=== PATIENT | female | born 2000 | race Caucasian/White ===

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

== ENCOUNTER 2019-08-29 12:24 | Emergency (ER) | payer OTHER ==
[2019-08-29 13:57] VITALS: BP 120/79
--- OUTSIDE RECORDS SUMMARY | 2019-08-29 14:04 | XMS REPORT | Continuity of Care Document ---
:2000 External Reference #:[id number] Author Name Usha Scruggs M.D. Address [address] [place] [address] Care Team Providers Name Role Phone Usha Scruggs M.D. - Pediatrics Care Team Information Water/Wastewater Engineer Problems Description No Active Problems Social History Type Date Description Comments Sex Unknown Tobacco Use Start: Unknown Patient has never smoked Tobacco Use Start: Unknown No Exposure To Secondhand Smoke Smoking Status Reviewed: 06/28/19 No Exposure To Secondhand Smoke Guns in Home No Allergies, Adverse Reactions, Alerts Description No Known Drug Allergies Medications Active Medications SIG Qnty Indications Ordering Provider Date Jessica 1 by mouth every 28tabs Z30.9 Usha Harvey 06/28/2019 0.35mg Tablets day Siobhan Scruggs Imitrex 1 tab for migraine 10tabs Usha Harvey 10/19/2018 25mg Tablets headache or prior Siobhan Scruggs to prolonged car travel Medications Administered in Office Medication SIG Qnty Indications Ordering Provider Date Immunization Administration Usha Scruggs M.D. 10/09/2018 Single Or Combination Injection Immunization Administration Usha Scruggs M.D. 08/02/2016 Single Or Combination Injection Immunization Administration Nursing 05/24/2016 Single Or Combination Injection Immunization Adminstration 2+ Giovana Hernandez NP 08/02/2015 Single Or Combination Injection Immunization Administration Giovana Hernandez NP 08/02/2015 Single Or Combination Injection Immunization Adminstration 2+ Usha Scruggs M.D. 07/25/2014 Single Or Combination Injection Immunization Administration Usha Scruggs M.D. 07/25/2014 Single Or Combination Injection Immunizations CPT Code Status Date Vaccine Reaction Lot # [id number] Given 10/09/2018 Flu Quadrivalent [id number] 30708 Given 08/02/2016 Flu Quadrivalent borrowed from private [id number] per EZ 26153 Given 05/24/2016 Meningococcal Conjugate [id number] Vaccine (Menveo) 80504 Given 08/02/2015 Flu Quadrivalent [id number] 56105 Given 08/02/2015 Hepatitis A Pediatric [id number] 71427 Given 07/25/2014 Flu Quadrivalent [id number] 04131 Given 07/25/2014 Hepatitis A Pediatric [id number] 61510 Given 01/17/2014 Gardasil 55621 Given 09/20/2013 Gardasil 29895 Given 07/19/2013 Gardasil 27301 Given 07/17/2012 Influenza Virus Vaccine, Split Virus, 6-35 Months Age Intramuscul 59574 Given 07/08/2011 Influenza Virus Vaccine, Split Virus, 6-35 Months Age Intramuscul 02696 Given 06/11/2010 Tdap 73449 Given 06/11/2010 Influenza Virus Vaccine, Split Virus, 6-35 Months Age Intramuscul 96662 Given 06/11/2010 Varicella (Chicken Pox) Vaccine 00095 Given 06/05/2009 Menactra 74084 Given 08/02/2008 Influenza Virus Vaccine, Split Virus, 6-35 Months Age Intramuscul 43098 Given 07/24/2006 Influenza Virus Vaccine, Split Virus, 6-35 Months Age Intramuscul 68926 Given 03/29/2004 Varicella (Chicken Pox) Vaccine 03413 Given 03/29/2004 Polio Injectable 15453 Given 03/29/2004 MMR Vaccine, Live, For Subcutaneous Use 14670 Given 03/29/2004 DTaP Vaccine Younger Than 7 55669 Given 01/15/2001 DTaP Vaccine Younger Than 7 09981 Given 01/15/2001 Prevnar 13 80095 Given 01/15/2001 Hib Vaccine 20567 Given 10/02/2000 Hepatitis B Vaccine Pediatric/Adolescent 08769 Given 10/02/2000 MMR Vaccine, Live, For Subcutaneous Use 03401 Given 10/02/2000 Prevnar 13 08031 Given 05/13/2000 Polio Injectable 16718 Given 05/13/2000 Hib Vaccine 68377 Given 02/08/2000 Hepatitis B Vaccine Pediatric/Adolescent 99329 Given 02/08/2000 DTaP Vaccine Younger Than 7 73709 Given 1999 Hepatitis B Vaccine Pediatric/Adolescent 85339 Given 1999 Polio Injectable 75646 Given 1999 DTaP Vaccine Younger Than 7 65360 Given 1999 Hib Vaccine 41976 Given 1999 Polio Injectable 54957 Given 1999 DTaP Vaccine Younger Than 7 42232 Given 1999 Hib Vaccine 76233 Refused 10/09/2018 Meningococcal B Vaccine Vital Signs Date Vital Result Comment 06/28/2019 4:39pm Body Temperature 98.3 F Heart Rate 72 /min Respiratory Rate 16 /min Weight 96.75 lb Weight 43.886 kg Weight Percentile <3rd 10/09/2018 11:10am Body Temperature 98.3 F Heart Rate 80 /min Respiratory Rate 12 /min BP Systolic 108 mmHg BP Diastolic 79 mmHg Weight 91.56 lb Weight 41.533 kg Height 60.75 inches 5'0.75" BMI (Body Mass Index) 17.4 kg/m2 Body Mass Index Percentile 3 % Height Percentile 8 % Weight Percentile <3rd Results Test Date Facility Test Result H/L Range Note Complete Blood 04/16/2019 [facility] WBC Num Bld 4.7 10*3/uL 4.5-13 1 Count Auto RBC Num Bld Auto 4.78 10*6/uL 4.1-5.3 Hgb Bld-mCnc 14.5 g/dL 11.5-15.5 Hct VFr Bld Auto 42.9 % 36-45 MCV RBC Auto 89.8 fL 80-96 MCH RBC Qn Auto 30.3 pg 27-33 MCHC RBC Auto-mCnc 33.8 g/dL 32.0-36.0 RDW RBC Auto-Rto 13.5 % 11.5-14.5 Platelet Num Bld Auto 245 10*3/uL 150-400 Laboratory test finding 04/16/2019 [facility] Beta HCG, Quant <1 m[IU]/ mL <5 Type And Screen 04/16/2019 [facility] Abo + Rh Bld O POS Bld gp Ab Scn SerPl Ql NEG Blood Bank Cmnt Patient-Imp Performed at [facility] <SEE NOTE> 2 1 PAT DOS 04/23/[address] [facility], [address], [place], [place] Procedures Description No Information Available Medical Devices Description No Information Available Encounters Type Date Location Provider Dx Diagnosis Office Visit 06/28/2019 [facility] Usha Scruggs, R10.30 Lower abdominal pain, 4:30p M.DDennis unspecified Z30.9 Encounter for contraceptive management, unspecified Assessments Date Code Description Provider 06/28/2019 R10.30 Lower abdominal pain, unspecified Usha Scruggs M.D. 06/28/2019 Z30.9 Encounter for contraceptive management, Usha Scruggs M.D. unspecified Plan of Treatment Future Appointment(s):10/11/2019 10:30 am - Usha Scruggs M.D. at [facility]06/28/2019 - Usha Scruggs M.D.R10.30 Lower abdominal pain, unspecifiedNew Xrays:Ultrasound Kidney/Renal/Bladder, Ordered: 06/28/19Comments: Call our office when you have the pain again. We should order an U/S of your kidneys and your ovaries at that time. We should also get a urine sample (can come into the office to give this as a nursesvisit)Referral:Dilshad Moore MD, Surgery,UtncaqddubZ01.9 Encounter for contraceptive management, unspecifiedNew Medication:Jessica 0.35 mg - 1 by mouth every dayFollow up:recheck at [place] in Sep Functional Status Description No Information Available Mental Status Description No Information Available Referrals Refer to Dr Reason for Referral Status Appt Date Dilshad Moore MD Created [address] [place] [address] [phone]
--- OUTSIDE RECORDS SUMMARY | 2019-08-29 14:04 | XMS REPORT | Continuity of Care Document ---
:1999 External Reference #:[id number] Author Name Dylan Hill M.D. Address [address] [address] Care Team Providers Name Role Phone Usha Scruggs MD - Pediatric Care Team Information Vice President Of Customer Service Emergency Medicine Problems Active Problems Provider Date Right lower quadrant pain Dylan Hill M.D. Onset: 07/15/2019 Social History Type Date Description Comments Sex Unknown Tobacco Use Start: Unknown Never Smoked Cigarettes Tobacco Use Start: Unknown Patient has never smoked Smoking Status Reviewed: 07/12/19 Patient has never smoked Allergies, Adverse Reactions, Alerts Description No Known Drug Allergies Medications Active Medications SIG Qnty Indications Ordering Provider Date Verapamil HCL Rodolfo Lau MD 40mg Tablets Norethindrone Usha Scruggs MD 0.35mg Tablets Sumatriptan Succinate Rodolfo Lau MD 50mg Tablets Immunizations Description No Information Available Vital Signs Date Vital Result Comment 07/15/2019 2:56pm BP Systolic 112 mmHg BP Diastolic 73 mmHg Body Temperature 98.7 F Heart Rate 99 /min Respiratory Rate 16 /min Height 60 inches 5'0" Weight 97.00 lb BMI (Body Mass Index) 18.9 kg/m2 BSA (Body Surface Area) 1.37 m2 [place] body weight in kilograms 45 kg Height Percentile 5 % Weight Percentile <3rd O2 % BldC Oximetry 98 % Pain Level 6 pt states lower left side of back. Results Test Date Facility Test Result H/L Range Note Urine Dipstick 07/15/2019 [facility] Color yellow Yellow Ua Clarity clear Clear Ua Leuko neg Negative Ua Nitrite neg Negative Ua Urobilinogen 0.2 0.2 - 1.0 E.U./dL Ua Protein neg Negative Ua PH 5.5 Low 6.5-7.5 Ua Blood neg Negative Ua Specific [place] 1.030 1.010-1.030 Ua Ketones neg Negative Ua Bilirubin neg Negative Ua Glucose neg Negative Procedures Description No Information Available Medical Devices Description No Information Available Encounters Type Date Location Provider Dx Diagnosis Office Visit 07/15/2019 Urology Dylan Hill, R10.31 Right lower quadrant 2:45p M.D. pain Assessments Date Code Description Provider 07/15/2019 R10.31 Right lower quadrant pain Dylan Hill M.D. Plan of Treatment 07/15/2019 - Dylan Hill M.D.R10.31 Right lower quadrant painNew Xrays:CT, Abdomen & Pelvis W/O Contrast, Ordered: 07/15/19Comments:Patient reports intermittent abdominal and flank pain. She has not had any CT imaging yet and I think it's worthwhile to order a CT given her symptoms to look at her kidneys and rule out other pathology in the abdomen. I will see the patient back after CT scan is done. Functional Status Description No Information Available Mental Status Description No Information Available Referrals Description No Information Available
--- OUTSIDE RECORDS SUMMARY | 2019-08-29 14:04 | XMS REPORT | Continuity of Care Document ---
:1999 External Reference #:[id number] Author Name Vu Luis PA Address [address] [facility], [address] [place] [address] Care Team Providers Name Role Phone Usha Scruggs MD - Pediatric Care Team Information Director Of Instruction Emergency Medicine Problems Active Problems Provider Date Right lower quadrant pain Dylan Hill M.D. Onset: 07/15/2019 Social History Type Date Description Comments Sex Unknown Tobacco Use Start: Unknown Never Smoked Cigarettes Tobacco Use Start: Unknown Patient has never smoked Smoking Status Reviewed: 08/06/19 Patient has never smoked Allergies, Adverse Reactions, Alerts Description No Known Drug Allergies Medications Active Medications SIG Qnty Indications Ordering Provider Date Verapamil HCL Rodolfo Lau MD 40mg Tablets Norethindrone Usha Scruggs MD 0.35mg Tablets Sumatriptan Succinate Rodolfo Lau MD 50mg Tablets Immunizations Description No Information Available Vital Signs Date Vital Result Comment 08/10/2019 1:09pm BP Systolic Sitting Left Arm 111 mmHg BP Diastolic Sitting Left Arm 71 mmHg Body Temperature 99.4 F Heart Rate 68 /min Respiratory Rate 12 /min Height 60 inches 5'0" Weight 95.38 lb BMI (Body Mass Index) 18.6 kg/m2 BSA (Body Surface Area) 1.36 m2 Elliott body weight in kilograms 45 kg O2 % BldC Oximetry 100 % Ra Pain Level 0 07/15/2019 2:56pm BP Systolic 112 mmHg BP Diastolic 73 mmHg Body Temperature 98.7 F Heart Rate 99 /min Respiratory Rate 16 /min Height 60 inches 5'0" Weight 97.00 lb BMI (Body Mass Index) 18.9 kg/m2 BSA (Body Surface Area) 1.37 m2 Elliott body weight in kilograms 45 kg Height Percentile 5 % Weight Percentile <3rd O2 % BldC Oximetry 98 % Pain Level 6 pt states lower left side of back. Results Test Acquired Date Facility Test Result H/L Range Note Urine Dipstick 07/15/2019 [facility] Ua Color yellow Yellow Ua Clarity clear Clear Ua Leuko neg Negative Ua Nitrite neg Negative Ua Urobilinogen 0.2 0.2 - 1.0 E.U./dL Ua Protein neg Negative Ua PH 5.5 Low 6.5-7.5 Ua Blood neg Negative Ua Specific [place] 1.030 1.010-1.030 Ua Ketones neg Negative Ua Bilirubin neg Negative Ua Glucose neg Negative Procedures Date Code Description Status 07/15/2019 37134 Measurement Post Voiding Residual Urine By Completed Ultrasound,Non-Imaging Medical Devices Description No Information Available Encounters Type Date Location Provider Dx Diagnosis Office Visit 08/10/2019 Urology Vu Luis, R10.31 Right lower quadrant 1:00p PA pain N20.0 Calculus of kidney Office Visit 07/15/2019 2:45p Urology Dylan Hill R10.Kobe Right lower M.DDennis quadrant pain Assessments Date Code Description Provider 08/10/2019 R10.31 Right lower quadrant pain Vu Luis PA 08/10/2019 N20.0 Calculus of kidney Vu Luis PA 07/15/2019 R10.31 Right lower quadrant pain Dylan Hill M.D. Plan of Treatment Future Appointment(s):09/07/2020 9:00 am - Vu Luis PA at [id number] - Vu Luis, PAR10.31 Right lower quadrant painComments:CT of the abdomen and pelvis are reviewed and shows the proximal portion of the appendix is dilated consistent with early appendicitis. Today she is asymptomatic. We consider surgical consultation but she does have her regular follow-up with her primary care physician in a month. Call for your review. Copy of the CAT scan report provided to the patient and her [id number] Calculus of kidneyNew Xrays:Ultrasound, Renal & Bladder, Ordered: Comments:No evidence of stone cyst hydronephrosis or mass on the skin skin. Follow-up 12 months for kidney stone follow-up with an ultrasound prior Functional Status Description No Information Available Mental Status Description No Information Available Referrals Description No Information Available
--- NOTE | 2019-08-29 14:10 | UC ---
Complaint Female HPI - HPI Summary HPI Summary: presents with c/o sudden onset of dysuria that began on 08/27/19. Pt states "yesterday wasn't doso bd" buthen reports she woke this morning with "blood in her urine".Denies risk of or STI's - History Of Current Complaint Stated Complaint: URINARY Time Seen by Provider: 08/29/19 13:50 Hx Obtained From: Patient Hx Last Menstrual Period: 08/13/19 ?: No Onset/Duration: Sudden Onset, Lasting Days, Still Present Timing: Constant Severity Initially: Mild Severity Currently: Mild Pain Intensity: 0 Character: Dull, Burning Aggravating Factor(s): Urination Alleviating Factor(s): Nothing Associated Signs And Symptoms: Positive: Negative - Risk Factors Ectopic Risk Factor: Negative Ovarian Torsion Risk Factor: Reproductive Age - Allergies/Home Medications Allergies/Adverse Reactions: Allergies Allergy/AdvReac Type Severity Reaction Status Date / Time No Known Allergies Allergy Verified 08/29/19 13:53 Home Medications: Home Medications Bcp 1 tab DAILY 08/29/19 [History Confirmed 08/29/19] PMH/Surg Hx/FS Hx/Imm Hx Previously Healthy: Yes - Surgical History Surgical History: Yes Surgery Procedure, Year, and Place: laparoscopy - Family History Known Family History: Negative: Cardiac Disease, Hypertension, Diabetes - Social History Occupation: Student Lives: Dormitory/Roommates Alcohol Use: None Substance Use Type: None Smoking Status (MU): Never Smoked Tobacco Have You Smoked in the Last Year: No - Immunization History Vaccination Up to Date: Yes Review of Systems All Other Systems Reviewed And Are Negative: Yes Constitutional: Positive: Negative Skin: Positive: Negative Eyes: Positive: Negative ENT: Positive: Negative Respiratory: Positive: Negative Cardiovascular: Positive: Negative Gastrointestinal: Positive: Negative Genitourinary: Positive: Dysuria, Hematuria, Frequency, Urgency Motor: Positive: Negative Neurovascular: Positive: Negative Musculoskeletal: Positive: Negative Neurological: Positive: Negative Psychological: Positive: Negative Is Patient Immunocompromised?: No Physical Exam Triage Information Reviewed: Yes Appearance: Well-Appearing Vital Signs: Initial Vital Signs Temp 98.2 F 08/29/19 13:54 Pulse 79 08/29/19 13:54 Resp 16 08/29/19 13:54 BP 120/79 08/29/19 13:54 Pulse Ox 100 08/29/19 13:54 Vital Signs Reviewed: Yes Eye Exam: Normal ENT Exam: Normal Dental Exam: Normal Neck exam: Normal Respiratory Exam: Normal Cardiovascular Exam: Normal Abdominal Exam: Normal Musculoskeletal Exam: Normal Neurological Exam: Normal Psychological Exam: Normal Skin Exam: Normal Complaint Female Dx - Differential Dx/Diagnosis Differential Diagnosis/HQI/PQRI: Sexually Transmitted Disease, Ureteral Stone, Urinary Tract Infection Provider Diagnosis: UTI (urinary tract infection) Discharge ED - Sign-Out/Discharge Documenting (check all that apply): Patient Departure All imaging exams completed and their final reports reviewed: No Studies - Discharge Plan Condition: Stable Disposition: HOME Prescriptions: Cephalexin CAP* [Keflex 500 CAP*] 500 mg PO Q12H #14 cap Phenazopyridine TAB* [Pyridium 100 mg TAB*] 100 mg PO Q8H #3 tab Patient Education Materials: Urinary Tract Infection in Women (ED) Referrals: Usha Scruggs MD [Primary Care Provider] - If Needed - Billing Disposition and Condition Condition: STABLE Disposition: Home
== END 2019-08-29 14:17 | disposition home or self-care (01) ==
LOC: UCCORT 12:24
DX: N39.0 Urinary tract infection, site not specified (principal); R31.9 Hematuria, unspecified
CPT/HCPCS: 81003; 87077; 87086; 87186; 99212; G0463

== ENCOUNTER 2019-09-29 23:49 | Emergency (ER) | payer OTHER ==
[2019-09-29 23:56] VITALS: BP 142/92
--- OUTSIDE RECORDS SUMMARY | 2019-09-30 00:01 | XMS REPORT | Summary of Care ---
:2000 Author Organization [facility] Address [address] [place] [address] Care Team Providers Name Role Phone Usha Scruggs MD Primary Care Provider Reason for Visit Reason Comments New Patient Poss kidney stones Encounter Details Date Type Department Care Team Description 09/07/2019 Office Visit [facility] Urology Erasto Thakkar V, Flank pain (Primary [address] [facility] [address] [facility] [id number] [address]V [phone] [place] [address] Allergies No Known Allergiesdocumented as of this encounter (statuses as of 09/14/2019) Medications Medication Sig Dispensed Refills Start Date End Date Status verapamil (CALAN) 80 MG Take 80 mg by 0 Active tablet mouth Two Times Daily sumatriptan (IMITREX) Take 25 mg by 0 Active 25 MG tablet mouth as needed for Migraine Norethindrone 0.35 MG 0 08/22/2019 Active Oral Tablet (MICRONOR) documented as of this encounter (statuses as of 09/14/2019) Active Problems Problem Noted Date Flank pain 09/14/2019 Last Assessment & Plan: I addressed flank pain with Sushila today. This is a new problem for us and has slightly improved. I discussed imaging findings and additional diagnostic testing with her today. She will obtain a renal ul trasound locally when symptomatic to assess for intermittent hydronephrosis, which would put her story in line with a Dietl's crisis. I will see her after the study is done. GERD (gastroesophageal reflux disease) 04/06/2013 Asthma 02/19/2012 documented as of this encounter (statuses as of 09/14/2019) Social History Tobacco Use Types Packs/Day Years Used Date Never Smoker Smokeless Tobacco: Never Used Alcohol Use Drinks/Week oz/Week Comments No Alcohol Habits Answer Date Recorded How often do you have a drink containing alcohol? Never 10/23/2018 How many drinks containing alcohol do you have on a typical Not asked day when you are drinking? How often do you have six or more drinks on one occasion? Not asked Sex Assigned at Date Recorded Not on file Job Start Date Occupation Industry Not on file Not on file Not on file Travel History Travel Start Travel End No recent travel history available. documented as of this encounter Last Filed Vital Signs Vital Sign Reading Time Taken Comments Blood Pressure 116/81 09/07/2019 2:22 PM EST Pulse 75 09/07/2019 2:22 PM EST Temperature - - Respiratory Rate 16 09/07/2019 2:22 PM EST Oxygen Saturation 100% 09/07/2019 2:22 PM EST Inhaled Oxygen Concentration - - Weight 43.2 kg (95 lb 3.2 oz) 09/07/2019 2:22 PM EST Height 152.4 cm (5') 09/07/2019 2:22 PM EST Body Mass Index 18.59 09/07/2019 2:22 PM EST documented in this encounter Progress Notes Nikos Rodriguez MD - 09/07/2019 2:30 PM EST Urology New Patient Note Subjective History of Present Illness: Sushila Bernal is a 19 y.o. female that states that since summer 2017 she has experienced vague stomach pain. It transitioned to more of a bilateral flank and lower abdominal pain in September 2018. She was diagnosed with an ovarian cyst, but this went away and was not felt to be causing symptoms. She had a diagnostic lap with Medical Imaging Specialist, and a workup for endometriosis was negative. She was seen in the ER, and appendicitis was ruled out. Her father has a hx of kidney stones, and she wondered if she may be suffering from obstructing stones. She notes weight loss from eating poorly during episodes of pain, which are associated with nausea and last a few days at a time with persistent pain. She denies dysuria, hematuria, fevers, chills during these events. She has had one recent UTI but no hospitalizations for pyelonephritis. She occasionally notes urinary urgency. She has never passed a kidney stone that she is aware of. She denies pain associated with increased fluid consumption. She has no recent injuries/trauma, and denies any extremity weakness or sensory loss. A CT last month demonstrated no calculi, however bilateral crossing vessels to the kidney were appreciated on our read, more noticeable on the right. There was no hydronephrosis. Of note, the scan was obtained at a time when she was not symptomatic. I personally reviewed referral records and the history above was supplemented with data from these outside records. The patient's past medical, surgical, medication, allergy, family, and social histories were reviewed and noncontributory to this illness/condition except as noted below: PMH: The patient has a past medical history of Asthma and Headache. PSH: The patient has a past surgical history that includes pr lap,diagnostic abdomen (N/A, 04/23/2019). Meds: The patient has a current medication list which includes the following prescription(s): norethindrone, sumatriptan, and verapamil. Allergies: The patient has No Known Allergies. FH: The patient's family history includes Alcohol abuse in her paternal grandmother; Allergies in her mother; Asthma in her maternal uncle and another family member; Heart attack in her maternal grandfather; Hypertension in her maternal grandfather; Stroke in her maternal grandfather; Thyroid disease in her mother. SH: The patient reports that she has never smoked. She has never used smokeless tobacco. She reports that she does not drink alcohol or use drugs. ROS: General: No fevers, chills, weight loss Eyes: No blurry vision, no double vision Ears: No hearing loss Throat: No hoarseness, no difficulty swallowing Heart: No chest pain, palpitations Lung: No shortness of breath Abdomen: No nausea, vomiting, +abd pain Urinary: As per HPI Extremities: No swelling, no ecchymosis. + jt/back pain, + cold extrems Psychiatric: No feelings of depression or anxiety Neurologic: No extremity weakness, no tingling or numbness. +GUERRERO's Skin: No rashes Objective Physical Exam BP 116/81 | Pulse 75 | Resp 16 | Ht 1.524 m | Wt 43.2 kg (95 lb 3.2 oz) | SpO2 100% | BMI 18.59 kg/m General: Awake, Alert Neurologic: Oriented to person, place, time Lung: Non-labored respirations Heart: Reg rate Abdomen: Soft, non-tender, nondistended Back: No CVA tenderness Extremities: No edema, WWP Psychiatric: Normal mood, affect The following objective data was personally reviewed and interpreted by me. Lab Review (30 Day): / \\ GFR: Ca: PTH: Vit D: Uric Acid: 4.2 \\ \\ UA negative for infection 10/23/18 Imaging: The patient had a CTAP w/o contrast performed prior to today's visit. These images were reviewed and interpreted by me personally today. Findings include bilateral crossing vessels. Sushila Bernal is a 19 y.o. female with bilateral flank pain of unknown etiology. Her symptoms and bilateral nature of the symptoms are not classic for UPJ obstruction, however she has not been imaged while symptomatic, and the presence of crossing vessels on her CT lend some suspicion for this as a cause of her pain. Plan: - Recommend obtaining renal ultrasound at time of symptoms, either in ER or at home at PCP's office,which she stated she could do - Will arrange f/u when patient calls back and scan is available - If hydronephrosis is demonstrated, will consider moving on to a renal scan to document obstruction Nikos Rodriguez PGY-3 Dept of Urology Assessment I saw and evaluated the patient. Discussed with the resident and agree with the residents findings and plans as written, along with any supplemental dictated and/or attending documentation in the patient record by myself. It was a pleasure seeing Sushila Bernal in clinic today. The encounter diagnosis was Flank pain. Flank pain I addressed flank pain with Sushila today. This is a new problem for us and has slightly improved. I discussed imaging findings and additional diagnostic testing with her today. She will obtain a renal ultrasound locally when symptomatic to assess for intermittent hydronephrosis, which would put her story in line with a Dietl's crisis. I will see her after the study is done. Plan Return for discussion of imaging results. No orders of the defined types were placed in this encounter. Thank you for allowing us to participate in the care of this patient. Please do not hesitate to contact us should you have any questions or concerns. Erasto Thakkar MD Weaving Loom Operator of Urology Chief of Endourology Service [facility] Urology documented in this encounter Plan of Treatment Health Maintenance Due Date Last Done Comments Pneumococcal Vaccine: Pediatrics 2005 (0 to 5 Years) and At-Risk Patients (6 to 64 Years) (1 of 1 - PPSV23) DTaP,Tdap,and Td Vaccines (2 - Td) 07/09/2010 06/11/2010 HIV Screening 2012 Chlamydia Screening 2015 Influenza Vaccine 06/22/2019 Pneumococcal Vaccine: 65+ Years (1 2064 of 2 - PCV13) Hepatitis B Vaccines Completed 10/01/2000, 02/08/2000, 1999 HIB Vaccines Completed 01/15/2001, 05/13/2000, 1999, Additional history exists IPV Vaccines Completed 03/29/2004, 05/13/2000, 1999, Additional history exists MMR Vaccines Completed 03/29/2004, 10/01/2000 Varicella Vaccines Completed 06/11/2010, 03/29/2004 HPV Vaccines Completed 01/17/2014, 09/19/2013, 07/19/2013 Hepatitis A Vaccines Completed 08/02/2015, 07/25/2014 documented as of this encounter Results Not on filedocumented in this encounter Visit Diagnoses Diagnosis Flank pain - Primary Abdominal pain, unspecified site documented in this encounter"
== END 2019-09-30 00:53 | disposition left against medical advice (07) ==
LOC: ED 23:49
DX: Z53.21 Procedure and treatment not carried out due to patient leaving prior to being seen by health care provider (principal); R06.02 Shortness of breath
CPT/HCPCS: 99282